=== PATIENT | male | born 1990 ===

== ENCOUNTER 2016-09-25 15:02 | Emergency (ER) | payer OTHER ==
[~2016-09-25] VITALS: Ht 22.9 cm; Wt 59.0 kg
[2016-09-25] MEDS ORDERED: 0.9% Sodium Chloride 1,000 ML IV ONE (15:03)
[2016-09-25 15:10] VITALS: BP 136/78; PULSE 87; RESP 16; O2SAT 98
[2016-09-25 15:20] VITALS: BP 136/78; PULSE 87; RESP 16; O2SAT 98
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
[2016-09-25 16:14] LABS: BASOPHILS % (AUTO) 0.1 % (0-3); EOSINOPHILS % (AUTO) 0.1 % (0-5); MONOCYTES % (AUTO) 19.2 % (4-12); Mean Corpuscular Hemoglobin 32.1 pg (27.0-35.0); Mean Corpuscular Volume 87.4 fL (81-100); NEUTROPHILS % (AUTO) 71.8 % (40-74); Platelet Count 220 bil/L (150-400)
--- NOTE | 2016-09-25 17:40 | DRSVH ---
PROCEDURE: CT BRAIN WITHOUT CONTRAST ([id number]) INDICATIONS: 26 year-old male with altered mental status. TECHNIQUE: Noncontrast 4.5 mm thick angled axial sections acquired from the foramen magnum to the vertex, with c oronal reformats. COMPARISON: None available. FINDINGS: Image quality: Excellent. CSF spaces: Basal cisterns are patent. There is 7 mm thick acute left hemispheric subdural hematoma. There is asymmetric enlargement of the right lateral ventricle. Other ventricles appear normal in ov erall size. Brain: There are 7 mm of left to right midline shift. No other intracranial mass effects. There is si gnificant asymmetric right frontal lobe atrophy, as well as extensive gliosis. Skull and face: Patient is status post remote right frontal craniotomy. Facial bones appear intact. Sinuses: There is left frontal sinus mucous retention cyst or polyp. Other visualized sinuses and mas toids appear clear. IMPRESSION: 1. 7 mm thick acute left hemispheric subdural hematoma causes 7 mm of left to right midline shift. 2. Background extensive right frontal lobe encephalomalacia and asymmetric atrophy, with resultant ri ght hydrocephalus ex vacuo, as well as sequelae of remote right frontal craniotomy. 3. Left frontal sinus mucous retention cyst or polyp. Subdural hematoma findings were discussed with Dr. Villanueva by telephone at 1735 hrs. on September 25, 2016 . Dictated by: Jimi Blue M.D. on 09/25/2016 at 17:34 Approved by: Jimi Blue M.D. on 09/25/2016 at 17:38
[2016-09-25 17:48] VITALS: BP 145/91; PULSE 84; RESP 18; O2SAT 98
[2016-09-25 18:26] VITALS: BP 135/81; PULSE 95; RESP 16; O2SAT 99
[2016-09-25 18:42] VITALS: BP 135/81; PULSE 95; RESP 16; O2SAT 98
[2016-09-27 15:10] LABS: Lamotrigine (Lamictal) None Detected ug/mL (2.0-20.0)
[2016-09-28 09:12] LABS: Levetiracetam (Keppra) 9.7 ug/mL (10.0-40.0)
== END 2016-09-25 21:38 | disposition short-term general hospital (02) ==
LOC: EDBD 15:02 → SED 15:02
DX: S06.5X0A Traumatic subdural hemorrhage without loss of consciousness, initial encounter (principal); Y09 Assault by unspecified means; Y92.9 Unspecified place or not applicable; Y93.89 Activity, other specified; Y99.8 Other external cause status; R40.2412 Glasgow coma scale score 13-15, at arrival to emergency department; G40.909 Epilepsy, unspecified, not intractable, without status epilepticus; F17.200 Nicotine dependence, unspecified, uncomplicated; Z87.820 Personal history of traumatic brain injury; Z86.73 Personal history of transient ischemic attack (TIA), and cerebral infarction without residual deficits
CPT/HCPCS: 36415; 70450; 80053; 80164; 80299; 82542; 85025; 96360; 99291; J7030